=== PATIENT | female | born 1970 | race Caucasian/White ===

== ENCOUNTER → 2021-01-01 06:50 | Outpatient (CLI) | payer OTHER, SELFPAY ==
[2021-01-01 22:35] LABS: SARS-CoV-2 RNA PCR Negative
== END ==
PROVIDERS: PCP Internal Medicine; Visit Provider Internal Medicine
DX: Z20.822 Contact with and (suspected) exposure to COVID-19 (principal)
CPT/HCPCS: C9803; U0003; U0005

== ENCOUNTER 2025-04-25 16:19 | Outpatient (CLI) | payer OTHER, SELFPAY ==
--- NOTE | ~2025-04-25 | XR_ITS ---
XR shoulder RT min 2V Ordering provider: Vega Bonilla, History: . Right shoulder pain . Comparison: None. FINDINGS: BONES: No acute fracture or dislocation. Osteophytes seen in the inferior humeral head. JOINT SPACES: The acromioclavicular joint is normal. The glenohumeral joint is normal. SOFT TISSUES: Normal. IMPRESSION: No acute osseous abnormality right shoulder. Mild osteoarthritic changes of the glenohumeral joint. Reviewed, dictated and finalized at location A.
--- NOTE | ~2025-04-25 | XR_ITS ---
Left Hand Technique: PA, oblique, and lateral views were obtained. Clinical History: Pain Findings: No acute fracture or dislocation is seen. Osseous alignment is anatomic. Joint spaces are p reserved. Soft tissues are unremarkable. Impression: Unremarkable left hand. Reviewed, dictated and finalized at location M. Impression: Unremarkable left hand.
--- NOTE | ~2025-04-25 | XR_ITS ---
Right Hand Technique: PA, oblique, and lateral views were obtained. Clinical History: Pain Findings: No acute fracture or dislocation is seen. Osseous alignment is anatomic. Joint spaces are p reserved. Soft tissues are unremarkable. Impression: Unremarkable right hand. Reviewed, dictated and finalized at location M. Impression: Unremarkable right hand.
== END 2025-04-25 16:20 | disposition home or self-care (01) ==
LOC: MICIMG 16:23
PROVIDERS: PCP Family Medicine; Visit Provider Family Medicine
DX: M19.011 Primary osteoarthritis, right shoulder (principal); M79.641 Pain in right hand; M79.642 Pain in left hand
CPT/HCPCS: 73030; 73130